=== PATIENT | male | born 2000 | race Caucasian/White ===

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

== ENCOUNTER 2018-04-25 23:38 | Emergency (ER) | END 2018-04-26 02:38 | disposition home or self-care (01) ==

== ENCOUNTER 2018-10-04 21:44 | Emergency (ER) | payer BC ==
[~2018-10-04] VITALS: Ht 170.2 cm; Wt 121.0 kg
[~2018-10-04 21:44] MED LIST changes: +AMOX500C2 PO; +CEPH-443 PO; +IBUP-1542 PO; +IBUP-1561 PO
[2018-10-04 21:45] VITALS: Ht 170.2 cm; Wt 121.0 kg
[2018-10-04] MEDS ORDERED: ALBUTEROL 0.083% (NEB) 2.5 MG/3 ML AMP HHN STA (21:56)
[2018-10-04] MEDS ORDERED: IPRATROPIUM (NEB) 0.5 MG/2.5 ML AMP HHN ONE (22:00)
[2018-10-04] MEDS ORDERED: DEXAMETHASONE 10 MG/ML 1 ML INJ IM ONE (22:00)
[2018-10-04] MEDS ORDERED: ALBU8.5H8 INH (22:57)
[2018-10-04] MEDS ORDERED: PRED20TA PO (22:57)
[2018-10-04] MEDS ORDERED: ALBU2.5V3 NEB (22:57)
[2018-10-04 23:08] VITALS: BP 139/70; PULSE 91; RESP 20
--- NOTE | 2018-10-04 23:27 | ERD ---
ER Documentation Chief Complaint Chief Complaint sob/asthma x 2 days HPI 17-year-old male presenting with asthma exacerbation times 2 days. Patient states he has some mild nasal congestion but denies fever. He states he has a long history of asthma and this is normal to his previous asthma exacerbations. Denies medical problems. NKDA. Surgical history is peritonsillar abscess drainage. Social history denies. ROS All systems reviewed and are negative except as per history of present illness. Medications Home Meds Active Scripts Albuterol Sulfate* (Proair HFA*) 8.5 Gm Hfa.aer.ad, 2 PUFF INH Q4, #1 INHALER Prov:LILA OLMOSC 10/04/18 Albuterol Sulfate* (Albuterol Sulfate* Neb) 0.083%-3 Ml Neb, 2.5 MG NEB Q4 PRN for SHORTNESS OF BREATH, #30 EA Prov:LILA OLMOSC 10/04/18 Prednisone* (Prednisone*) 20 Mg Tab, 40 MG PO DAILY for 4 Days, TAB Prov:LILA OLMOSC 10/04/18 Ibuprofen* (Motrin*) 600 Mg Tab, 600 MG PO Q6, #30 TAB Prov:NANCY CRONINC 04/26/18 Cephalexin* (Keflex*) 500 Mg Capsule, 500 MG PO TID for 7 Days, CAP Prov:NANCY CRONINC 04/26/18 Ibuprofen* (Motrin*) 400 Mg Tab, 400 MG PO Q6H PRN for PAIN AND OR ELEVATED TEMP, #30 TAB Prov:DANNIE CAREY PA-C 03/09/17 Amoxicillin* (Amoxicillin*) 500 Mg Cap, 500 MG PO BID for 10 Days, CAP Prov:DANNIE CAREYC 03/09/17 Prednisone (Prednisone) 20 Mg Tab, 40 MG PO DAILY for 5 Days, TAB Prov:CHRIS RUFF 05/01/16 Albuterol Sulfate* (Ventolin HFA*) 18 Gm Hfa.aer.ad, 2 PUFF INHALATION Q4H, #1 INHALER Prov:CHRIS RUFF 05/01/16 Reported Medications Loratadine* (Loratadine*) 10 Mg Tablet, 10 MG PO DAILY, TAB 11/16/15 Albuterol Sulfate* (Albuterol Sulfate* HFA) 8.5 Gm Hfa.aer.ad, 2 PUFF IH Q4H PRN for WHEEZING AND SOB, EA 08/21/15 Beclomethasone Dip* (Qvar 80*) 7.3 Gm Inha, 1 PUFF PO BID 01/07/11 Allergies Allergies: Coded Allergies: No Known Allergy (Verified , 05/01/16) PMhx/Soc History of Surgery: Yes (L sided neck cyst removed) Anesthesia Reaction: No Hx Neurological Disorder: No Hx Respiratory Disorders: Yes (Asthma) Hx Cardiac Disorders: No Hx Psychiatric Problems: No Hx Miscellaneous Medical Probl: No Hx Alcohol Use: No Hx Substance Use: No Hx Tobacco Use: No Smoking Status: Never smoker FmHx Family History: No diabetes, No coronary disease, No other Physical Exam Vitals Vital Signs Date Temp Pulse Resp B/P (MAP) Pulse Ox O2 O2 Flow FiO2 Time Delivery Rate 10/04/18 98.7 91 20 139/70 98 Room Air 23:08 (93) 10/04/18 89 20 95 21 22:06 10/04/18 98.9 89 20 143/75 98 21:45 (97) Physical Exam GENERAL: The patient is well-appearing, well-nourished, in no acute distress HEENT: Atraumatic. Conjunctivae are pink. Pupils equal, round, and reactive to light. There is no scleral icterus. Tympanic membranes clear bilaterally. Oropharynx clear. No nystagmus or photophobia. CHEST: Diffuse wheezing or auscultation. No focal rhonchi. No retractions. HEART: Regular rate and rhythm. No murmurs, clicks, rubs or gallops. No S3 or S4. Results 24 hrs Current Medications Medications Dose Sig/Germain Start Time Status Last (Trade) Ordered Route PRN Stop Time Admin Dose Reason Admin Albuterol 5 mg ONCE STAT 10/04/18 DC 10/04/18 (Proventil HHN 21:56 22:05 0.083% (Neb)) 10/04/18 21:58 Ipratropium 0.5 mg ONCE ONCE 10/04/18 DC 10/04/18 [place] HHN 22:00 22:05 (Atrovent 10/04/18 0.02% 22:01 (Neb)) 10 mg ONCE ONCE 10/04/18 DC 10/04/18 Dexamethasone IM 22:00 22:05 (Decadron) 10/04/18 22:01 Procedures/MDM ER course: Albuterol and Atrovent breathing treatment given ED. IM Decadron given ED. MDM: 17-year-old male presenting with asthma exacerbation. Patient symptoms improved with breathing treatment and stated he did not want an additional breathing treatment in the ER. Patient be discharged with supportive medication. I did not feel that patient has concerns for pneumonia. Patient is told symptoms change or worsen to return the ER immediately. All questions answered discharge Departure Diagnosis: Primary Impression: Asthma with acute exacerbation Condition: Stable Patient Instructions: Asthma, Acute (Adult) Referrals: [facility] (PCP) Additional Instructions: FOLLOW UP WITH YOUR PRIMARY CARE PHYSICIAN TOMORROW.Return to this facility if you are not improving as expected. LILA OLMOS PA-C Oct 04, 2018 23:27
== END 2018-10-04 23:10 | disposition home or self-care (01) ==
LOC: FTE 21:44
DX: J45.901 Unspecified asthma with (acute) exacerbation (principal)
CPT/HCPCS: 94664; 96372; 99284; J1100; Z7610